=== PATIENT | female | born 1950 | race Caucasian/White ===

== ENCOUNTER 2018-04-03 15:51 | Outpatient (CLI) | payer MEDICARE ==
--- NOTE | 2018-04-03 16:58 | MRI ---
MRI LUMBAR SPINE WITHOUT CONTRAST: 04/03/18 HISTORY: M54.16 - radiculopathy. Low back pain. COMPARISON: MRI lumbar spine from 2013. FINDINGS: The aortic contour is nonaneurysmal. No retroperitoneal adenopathy. There are T2 hyperintense foci of the right kidney similar to the comparison examination. No hydronephrosis. T2 hyperdense focus infer ior pole left kidney is also similar. The conus medullaris terminates at the superior end plate of L1. Hemangioma is present at L1 vertebra l body. Levels are as follows: T12-1: Normal discs. No neural foraminal or spinal canal narrowing. L1-2: Normal discs. Mild facet arthropathy. No neural foraminal or spinal canal narrowing. L2-3: There is asymmetric posterior disc bulge. No significant neural foraminal or spinal canal narro wing. L3-4: There is a mild circumferential disc bulge and disc desiccation. moderate facet arthropathy. Mi ld bilateral neural foraminal narrowing. L4-5: There is extensive moderate to severe facet arthropathy. This creates at 2 mm L4-L5 anterolisth esis. No significant neural foraminal or spinal canal narrowing. L5-S1: Severe facet arthrosis. 1 mm anterolisthesis. No significant neural foraminal or spinal canal narrowing. A perineural cyst is present on the exiting left S2 nerve root. There is narrowing of the interspinous spaces between L2-3, L3-4 and L4-5 with some osseous remodelin g and degenerative changes. IMPRESSION: 1. No acute abnormality. 2. Mild spondylosis. 3. Narrowing of the interspinous space of the lower lumbar spine can be the cause of patient's p ain. POS: [facility]
== END 2018-04-03 15:52 | disposition home or self-care (01) ==
LOC: TBSIIMAG 15:51
PROVIDERS: ATTEND Family Medicine
DX: M47.26 Other spondylosis with radiculopathy, lumbar region (principal); M48.061 Spinal stenosis, lumbar region without neurogenic claudication
CPT/HCPCS: 72148

== ENCOUNTER 2018-09-21 14:54 | Outpatient (CLI) | payer MEDICARE | END 2018-09-21 14:55 | disposition home or self-care (01) | LOC: BICMAMMO 14:54 | PROVIDERS: ATTEND Obstetrics & Gynecology | DX: Z12.31 Encounter for screening mammogram for malignant neoplasm of breast (principal); R92.1 Mammographic calcification found on diagnostic imaging of breast; Z80.3 Family history of malignant neoplasm of breast | CPT/HCPCS: 77063; 77067 ==

== ENCOUNTER 2018-12-17 14:36 | Outpatient (CLI) | payer MEDICARE ==
--- NOTE | 2018-12-17 17:24 | MRI ---
MRI LEFT KNEE WITHOUT CONTRAST: INDICATIONS: History of fall 50 years ago with worsening left knee pain. FINDINGS: There are small marginal osteophytes affecting all major compartments of the left knee with areas of severe chondrosis involving the patella and lateral trochlea. There is diffuse moderate chondrosis i nvolving the medial and lateral femorotibial compartment. There is some intrinsic intrameniscal degenerative signal without evidence of discrete tear. The ACL, PCL, MCL, and LCLC are intact. The extensor mechanism is intact. There is a small intraarticular body seen within the anterior aspect of the knee joint, adjacent to t he anterior horn of the lateral meniscus, measuring 4.7 mm. No acute fracture is evident. IMPRESSION: 1. Moderate osteoarthrosis of the left knee. 2. Small intraarticular body within the anterior knee joint, adjacent to the anterior horn of the la teral meniscus. 3. Intrameniscal degenerative signal without evidence of a discrete tear. POS: [facility]
--- NOTE | 2018-12-17 17:31 | MRI ---
MRI RIGHT KNEE WITHOUT CONTRAST: INDICATIONS: Right knee pain of unspecified chronicity. History of a fall 50 years ago, now with worsening right knee pain. FINDINGS: There are prominent marginal osteophytes, affecting all major compartments of the knee, with severe l ateral patellofemoral joint compartmental narrowing. There is a partially calcified, centrally T1 hy perintense, T2 hyperintense, 1.9 x 2.5 cm lesion within the right aspect of the suprapatellar pouch, which may reflect an intraarticular body or possibly fat necrosis of portions of the suprapatellar fa t pad. There is a vertically oriented tear involving the posterior horn and posterior root of the medial men iscus partial medial extrusion. There is suspicious for a horizontally oriented tear involving the p osterior horn and posterior root of the lateral meniscus. There is a parameniscal cyst extending up to the posterior aspect of the medial meniscus posterior horn, on image 19 of series 7, suspicious fo r a large parameniscal cyst. This measures approximately 3.1 x 3.7 cm in its greatest mediolateral a nd craniocaudad dimensions. There is diffuse moderate chondrosis of the femorotibial compartments. The ACL, PCL, MCL, and LCLC a re intact. The extensor mechanism is intact. IMPRESSION: 1. Moderate to severe osteoarthrosis of the right knee. 2. Medial and lateral meniscal tears with suspected parameniscal cyst extending from the posterior h orn of the medial meniscus and extending posterior, through the joint capsule, along the posteromedia l aspect of the proximal tibia. 3. Suspected intraarticular body within the lateral aspect of the suprapatellar pouch versus focal f at necrosis of the suprapatellar fat pad. POS: [facility]
== END 2018-12-17 14:37 | disposition home or self-care (01) ==
LOC: TBSIIMAG 14:36
DX: M25.561 Pain in right knee (principal); M25.562 Pain in left knee; M17.0 Bilateral primary osteoarthritis of knee; S83.241A Other tear of medial meniscus, current injury, right knee, initial encounter; S83.281A Other tear of lateral meniscus, current injury, right knee, initial encounter

== ENCOUNTER 2019-09-02 20:10 | Emergency (ER) | payer MEDICARE ==
[2019-09-02] MEDS ORDERED: Ketorolac Tromethamine 60 MG/2 ML VIAL ONE (21:38)
--- NOTE | 2019-09-02 21:41 | RAD ---
Right knee 4 views HISTORY: Right knee pain. FINDINGS: Moderate tricompartmental osteophytosis. Joint space narrowing of the patellofemoral compar tment. No acute fracture, dislocation. Minimal fluid distention of the suprapatellar bursa. IMPRESSION: Mild to moderate osteoarthritic changes with a small joint effusion. No acute osseous abn ormalities are demonstrated.
--- NOTE | 2019-09-02 22:19 | ULT ---
Venous duplex sonogram right lower extremity HISTORY: Right leg pain and edema. FINDINGS: The right common femoral vein and greater saphenous junction were evaluated along with the femoral, deep femoral, popliteal, and posterior tibial veins. There is good color and spectral Doppler flow, compression, and augmentation. IMPRESSION: No sonographic evidence of DVT within the right lower extremity.
== END 2019-09-02 22:53 | disposition home or self-care (01) ==
LOC: ERS 20:10
DX: M17.11 Unilateral primary osteoarthritis, right knee (principal); E78.5 Hyperlipidemia, unspecified; E03.9 Hypothyroidism, unspecified
CPT/HCPCS: 96372; J1885

== ENCOUNTER 2019-09-24 16:01 | Outpatient (CLI) | payer MEDICARE ==
--- NOTE | 2019-09-23 13:19 | MRI ---
MRI LUMBAR SPINE WITHOUT CONTRAST: 09/23/2019 HISTORY: Lumbar radiculopathy. Left hip/leg numbness. COMPARISON: 05/01/2013 04/03/2018 TECHNIQUE: Multiplanar, multisequence MR imaging of the lumbar spine obtained without contrast. FINDINGS: The sagittal STIR imaging demonstrates no focal area of osseous marrow edema. On the basis of five juana mbar type vertebral bodies the conus medullaris terminates at the T12-L1 level. There is a subtle are a of heterogeneous decreased T1 signal intensity within the L1 vertebral body, unchanged since 2012, thus benign in nature. Stable minimal anterolisthesis of L4 on L5 measures 3-4 mm. T11-T12: Mild disk space narrowing and disk desiccation with mild anterior osteophyte formation. No s ignificant central canal or neural foraminal stenosis. T12-L1: Intervertebral disk height and signal intensity appears within normal limits. No significant central canal or neural foraminal stenosis. L1-L2: Mild facet hypertrophy on the left. Intervertebral disk height and signal intensity within nor mal limits with no significant central canal or neural foraminal stenosis. L2-L3: Mild bilateral facet hypertrophy. Mild disk bulge. No significant central canal or neural fora lauren stenosis. L3-L4: Disk desiccation and mild bilateral facet hypertrophy. No significant central canal or neural foraminal stenosis. L4-L5: Disk desiccation and mild bilateral facet hypertrophy with no significant central canal or wesley ral foraminal stenosis. L5-S1: Mild bilateral facet hypertrophy. No significant central canal or neural foraminal stenosis. T he imaged retroperitoneal structures demonstrate no acute findings. There is a cyst within the mid pole right kidney, measuring 1.4 cm in short axis dimension. IMPRESSION: Degenerative change within the lumbar spine, as detailed above. POS: [facility]
== END 2019-09-24 16:02 ==
LOC: BICMAMMO 16:01
PROVIDERS: ATTEND Obstetrics & Gynecology
DX: M47.26 Other spondylosis with radiculopathy, lumbar region (principal)
CPT/HCPCS: 72148

== ENCOUNTER 2019-09-24 16:08 | Outpatient (CLI) | payer MEDICARE ==
--- NOTE | 2019-09-24 16:39 | MMO ---
Bilateral MAMMO Bilat Screen [facility]. CLINICAL HISTORY: Patient is 69 years old and is seen for screening. The patient has no family history of breast cancer. The patient has no personal history of cancer. VIEWS: The views performed were: bilateral craniocaudal with tomosynthesis and bilateral mediolateral oblique with tomosynthesis. FILMS COMPARED: The present examination has been compared to prior imaging studies performed at [facility] on 02/15/2016, 09/07/2016, 09/19/2017 and 09/21/2018. This study has been interpreted with the assistance of computer-aided detection. MAMMOGRAM FINDINGS: The breasts are heterogeneously dense, which could obscure a lesion on mammography. There are stable benign appearing calcifications seen in both breasts. There are no suspicious masses, suspicious calcifications, or new areas of architectural distortion. IMPRESSION: THERE IS NO MAMMOGRAPHIC EVIDENCE OF MALIGNANCY. A ROUTINE FOLLOW-UP MAMMOGRAM IN 1 YEAR IS RECOMMENDED. THE RESULTS OF THIS EXAM WERE SENT TO THE PATIENT. ACR BI-RADS Category 2 - Benign finding MAMMOGRAPHY NOTE: 1. A negative mammogram report should not delay a biopsy if a dominant of clinically suspicious mass is present. 2. Approximately 10% to 15% of breast cancers are not detected by mammography. 3. Adenosis and dense breasts may obscure an underlying neoplasm. Reported by: NORMA CORDOVA MD Electonically Signed: [id number]
== END 2019-09-24 16:09 | disposition home or self-care (01) ==
LOC: BICMAMMO 16:08
PROVIDERS: ATTEND Obstetrics & Gynecology
DX: Z12.31 Encounter for screening mammogram for malignant neoplasm of breast (principal)
CPT/HCPCS: 77063; 77067

== ENCOUNTER 2020-09-25 13:52 | Outpatient (CLI) | payer MEDICARE ==
--- NOTE | 2020-09-25 14:50 | MMO ---
Bilateral MAMMO Bilat Screen [facility]. CLINICAL HISTORY: Patient is 70 years old and is seen for screening. The patient has no family history of breast cancer. The patient has no personal history of cancer. VIEWS: The views performed were: bilateral craniocaudal with tomosynthesis and bilateral mediolateral oblique with tomosynthesis. FILMS COMPARED: The present examination has been compared to prior imaging studies performed at [facility] on 09/07/2016, 09/19/2017, 09/21/2018 and 09/24/2019. This study has been interpreted with the assistance of computer-aided detection. MAMMOGRAM FINDINGS: The breasts are heterogeneously dense, which could obscure a lesion on mammography. There are calcifications with grouped or clustered distribution seen in the outer region of the left breast. In the right breast, there are no suspicious masses, calcifications or areas of architectural distortion. IMPRESSION: CALCIFICATIONS IN THE LEFT BREAST REQUIRE ADDITIONAL EVALUATION. RECOMMEND DIAGNOSTIC MAMMOGRAM. THE RESULTS OF THIS EXAM WERE SENT TO THE PATIENT. ACR BI-RADS Category 0 - Incomplete: Need additional imaging evaluation. [facility] will notify the patient of the need for additional imaging services. MAMMOGRAPHY NOTE: 1. A negative mammogram report should not delay a biopsy if a dominant of clinically suspicious mass is present. 2. Approximately 10% to 15% of breast cancers are not detected by mammography. 3. Adenosis and dense breasts may obscure an underlying neoplasm. Reported by: NORMA CORDOVA MD Electonically Signed: [id number]
== END 2020-09-25 13:53 | disposition home or self-care (01) ==
LOC: BICMAMMO 13:52
PROVIDERS: ATTEND Obstetrics & Gynecology
DX: Z12.31 Encounter for screening mammogram for malignant neoplasm of breast (principal); R92.1 Mammographic calcification found on diagnostic imaging of breast
CPT/HCPCS: 77063; 77067

== ENCOUNTER 2020-09-30 13:26 | Outpatient (CLI) | payer MEDICARE ==
--- NOTE | 2020-09-30 13:55 | MMO ---
Left Breast MAMMO Unilat Diag [facility]INE. CLINICAL HISTORY: Patient is 70 years old and is seen for additional evaluation requested from prior study. The patient has no family history of breast cancer. The patient has no personal history of cancer. VIEWS: The views performed were: left craniocaudal spot compression magnification; left mediolateral spot compression magnification; and left mediolateral with tomosynthesis. FILMS COMPARED: The present examination has been compared to prior imaging studies performed at [facility] on 09/19/2017, 09/21/2018, 09/24/2019 and 09/25/2020. This study has been interpreted with the assistance of computer-aided detection. MAMMOGRAM FINDINGS: The breast is heterogeneously dense, which could obscure a lesion on mammography. The tiny calcs in the left upper outer posterior breast are indeterminate and should be biopsied. IMPRESSION: FINDING IN THE LEFT BREAST IS SUSPICIOUS. NEEDLE LOCALIZATION AND BIOPSY ARE RECOMMENDED. THE RESULTS OF THIS EXAM WERE SENT TO THE PATIENT. ACR BI-RADS Category 4 - Suspicious abnormality - biopsy should be considered D/W pt in person @ 1350 hrs. MAMMOGRAPHY NOTE: 1. A negative mammogram report should not delay a biopsy if a dominant of clinically suspicious mass is present. 2. Approximately 10% to 15% of breast cancers are not detected by mammography. 3. Adenosis and dense breasts may obscure an underlying neoplasm. Reported by: NAZARIO MUNOZ MD Electonically Signed: [id number]
== END 2020-09-30 13:27 | disposition home or self-care (01) ==
LOC: BICMAMMO 13:26
PROVIDERS: ATTEND Obstetrics & Gynecology
DX: R92.1 Mammographic calcification found on diagnostic imaging of breast (principal)
CPT/HCPCS: 77065; G0279

== ENCOUNTER 2023-02-24 12:20 | Outpatient (CLI) | payer MEDICARE | END 2023-02-24 12:21 | disposition home or self-care (01) | LOC: TBSIIMAG 12:20 | PROVIDERS: ATTEND Specialist | DX: M51.16 Intervertebral disc disorders with radiculopathy, lumbar region (principal); M43.16 Spondylolisthesis, lumbar region | CPT/HCPCS: 72120; 72148 ==